=== PATIENT | male | born 1970 | race Caucasian/White ===

== ENCOUNTER 2024-03-19 19:03 | Inpatient (IN) | payer MEDICAID ==
[~2024-03-19] VITALS: Ht 165.1 cm; Wt 85.3 kg
[2024-03-19 19:20] VITALS: RESP 14
[2024-03-19] MEDS ORDERED: FENTANYL 2500MCG/250ML PMX 250 ML IV ONE (19:45)
[2024-03-19] MEDS: CEFTRIAXONE 1GM/50ML 50 ML IV ONE (20:18)
[2024-03-19] MEDS: PANTOPRAZOLE SODIUM 40 MG/VIAL IV STA (20:18)
[2024-03-19] MEDS: SODIUM CHLORIDE 0.9% 1,000 ML IV ONE (20:18)
[2024-03-19] MEDS: OCTREOTIDE ACETATE 50 MCG/ML 1ML IV STA (20:22)
[2024-03-19] MEDS: FENTANYL CITRATE/PF 2,500 MCG in SODIUM CHLORIDE 0.9% 200 ML IV PRN (20:23)
[2024-03-19 20:30] LABS: INR 1.4
[2024-03-19] MEDS ORDERED: ONDANSETRON HCL 4MG/2ML INJ IV PRN (20:30)
[2024-03-19] MEDS ORDERED: DOCUSATE SODIUM 100MG CAPSULE PO PRN (20:30)
[2024-03-19] MEDS ORDERED: GUAIFENESIN 200MG/10ML SUGAR FREE UDC PO PRN (20:30)
[2024-03-19] MEDS ORDERED: MAGNESIUM/ALUMINUM HYDROXIDE/SIMETHICONE 30ML UDC PO PRN (20:30)
[2024-03-19] MEDS ORDERED: IPRATROPIUM/ALBUTEROL 0.5-3(2.5)MG/3ML NEB HHN PRN (20:30)
[2024-03-19] MEDS ORDERED: ACETAMINOPHEN 325MG TABLET PO PRN (20:30)
[2024-03-19] MEDS ORDERED: CLONIDINE 0.1MG TABLET PO PRN (20:30)
[2024-03-19] MEDS: IPRATROPIUM/ALBUTEROL 0.5-3(2.5)MG/3ML NEB HHN SCH (20:30)
[2024-03-19] MEDS: PROPOFOL 10MG/ML 100ML 100 ML IV SCH (20:40)
[2024-03-19] MEDS ORDERED: MIDAZOLAM 100MG/100ML PMX 100 ML IV PRN (21:30)
[2024-03-19] MEDS: MIDAZOLAM 100MG/100ML PMX 100 ML IV PRN (21:38)
[2024-03-19] MEDS ORDERED: PANTOPRAZOLE 80 MG in SODIUM CHLORIDE 0.9% 100 ML IV SCH ×2 (21:45→22:00)
[2024-03-19] MEDS ORDERED: OCTREOTIDE 1,000 MCG in SODIUM CHLORIDE 0.9% 100 ML IV ONE (21:45)
[2024-03-19 21:50] VITALS: RESP 14
[2024-03-19] MEDS: MVI, ADULT NO.1 10 ML, FOLIC ACID 1 MG, THIAMINE HCL 100 MG in SODIUM CHLORIDE 0.9% 1,0... IV SCH (21:52)
[2024-03-19] MEDS: PANTOPRAZOLE 80 MG in SODIUM CHLORIDE 0.9% 100 ML IV SCH (21:55)
[2024-03-19] MEDS ORDERED: OCTREOTIDE 1,000 MCG in SODIUM CHLORIDE 0.9% 98 ML IV SCH (22:00)
[2024-03-19 22:17] LABS: BG BASE EXCESS -7.1 mmol/L (-2.0-3.0); BG CARBOXYHEMOGLOBIN 0.3 % (0.5-1.5); BG DEOXYHEMOGLOBIN 0.7 % (0.0-5.0); BG FRACTION INSPIRED OXYGEN 100; BG HCO3 ACT 18.8 mmol/L (21.0-28.0); BG METHEMOGLOBIN 0.3 % (0.5-1.5); BG OXYGEN SATURATION 99.3 % (94.0-98.0); BG OXYHEMOGLOBIN 98.7 % (94.0-98.0); BG PCO2 39.7 mmHg (35.0-48.0); BG PH 7.294 (7.350-7.450); BG PO2 266.9 mmHg (83.0-108.0); BG SAMPLE SITE RIGHT RADIAL; BG TOTAL HEMOGLOBIN 10.9 g/dL (13.5-17.5); BG VENT MODE VENT - AC
[2024-03-19 22:38] LABS: HEMATOCRIT. 31.4 % (42.0-52.0); HEMOGLOBIN. 10.5 g/dL (14.0-18.0); MEAN CORPUSCULAR HEMOGLOBIN 32.3 pg (28.0-32.0); MEAN CORPUSCULAR HGB CONC 33.4 g/dL (31.0-37.0); MEAN CORPUSCULAR VOLUME 96.8 fL (80.0-94.0); MEAN PLATELET VOLUME 9.2 fl (7.4-10.4); PLATELET 69 x1000/uL (130-400); RED BLOOD CELL COUNT 3.24 mill/uL (4.7-6.1); RED CELL DISTRIBUTION WIDTH 17.8 % (11.6-14.6); WHITE BLOOD COUNT 11.9 x1000/uL (4.5-11.0)
[2024-03-19 22:45] LABS: DIFFERENTIAL COMMENT 1
[2024-03-19 22:57] LABS: CHLORIDE 114 mEq/L (98-107); POTASSIUM 6.1 mEq/L (3.5-5.1); SODIUM 144 mEq/L (136-145)
[2024-03-19 22:58] LABS: CALCIUM 6.9 mg/dL (8.7-10.4); CARBON DIOXIDE 22 mEq/L (21-32)
[2024-03-19 23:00] LABS: FERRITIN 139 ng/mL (22-322); FOLIC ACID (FOLATE) SERUM 13.01 ng/mL (>5.38); VITAMIN B12 SERUM 1091 pg/mL (211-911)
[2024-03-19 23:02] LABS: IRON 106 ug/dL (65-175)
[2024-03-19 23:03] LABS: CREATININE 0.7 mg/dL (0.6-1.3); ETHANOL BLOOD 178 mg/dL (<10); GLUCOSE 123 mg/dL (70-105); UREA NITROGEN BLOOD 14 mg/dL (9-23)
[2024-03-19 23:04] LABS: AMMONIA 65 uMol/L (<32)
[2024-03-19 23:05] LABS: ALANINE AMINOTRANSFERASE 112 IU/L (10-49); ALBUMIN 2.3 g/dL (3.2-4.8); ASPARTATE AMINOTRANSFERASE 266 IU/L (<34); BILIRUBIN TOTAL 1.2 mg/dL (0.1-1.0); PROTEIN TOTAL 5.2 g/dL (6.0-8.3); TOTAL IRON BINDING CAPACITY 226 ug/dl (250-425)
[2024-03-19 23:06] LABS: ANISOCYTOSIS 1+; PLATELET ESTIMATE DECREASED
[2024-03-19] MEDS: NOREPINEPHRINE 8MG/250ML PMX 250 ML IV PRN (23:10)
[2024-03-19 23:22] LABS: TROPONIN I HIGH SENSITIVITY 91 ng/L (3.0-53)
[2024-03-19] MEDS ORDERED: INSULIN REGULAR (HUMULIN R) 1000UNITS/10ML VIAL IV NR (23:30)
[2024-03-19 23:42] VITALS: RESP 15
[2024-03-20] VITALS (64 sets, daily range): BP systolic 51–203; BP diastolic 11–168; PULSE 36–154; RESP 8–73; TEMP 36.114–37.0852; O2SAT 94–100
[2024-03-20] MEDS: OCTREOTIDE 1,000 MCG in SODIUM CHLORIDE 0.9% 98 ML IV SCH (00:53)
[2024-03-20] MEDS: CALCIUM GLUCONATE 1GM PREMIX 50 ML IV NR (01:06)
[2024-03-20] MEDS: INSULIN REGULAR (HUMULIN R) 1000UNITS/10ML VIAL IV NR (01:07)
[2024-03-20] MEDS: SODIUM BICARBONATE 8.4% 50MEQ/50ML SYR IV NR ×2 (01:07→01:33)
[2024-03-20] MEDS: DEXTROSE 50% WATER 50ML SYRINGE IV NR ×2 (01:07→01:33)
[2024-03-20 01:24] LABS: BILIRUBIN DIRECT 0.6 mg/dL (<=3.0)
[2024-03-20] MEDS: SODIUM ZIRCONIUM CYCLOSILICATE 10GM/PACKET PO NR (01:33)
[2024-03-20] MEDS: DEXT 5%/LACTATED RINGERS 1,000 ML IV NR (03:43)
[2024-03-20] MEDS ORDERED: VASOPRESSIN 20 UNIT in SODIUM CHLORIDE 0.9% 99 ML IV PRN (04:00)
[2024-03-20] MEDS ORDERED: PHENYLEPHRINE 50MG/250ML PMX 250 ML IV PRN (04:00)
[2024-03-20 04:18] LABS: BASOPHILS % 0.2 % (0.0-2.0); HEMATOCRIT. 26.5 % (42.0-52.0); HEMOGLOBIN. 8.6 g/dL (14.0-18.0); LYMPHOCYTES % 9.4 % (20.0-50.0); MEAN CORPUSCULAR HEMOGLOBIN 32.2 pg (28.0-32.0); MEAN CORPUSCULAR HGB CONC 32.4 g/dL (31.0-37.0); MEAN CORPUSCULAR VOLUME 99.5 fL (80.0-94.0); MEAN PLATELET VOLUME 9.7 fl (7.4-10.4); MONOCYTES % 4.7 % (2.0-8.0); NEUTROPHILS % 85.7 % (40.0-76.0); PLATELET 64 x1000/uL (130-400); RED BLOOD CELL COUNT 2.66 mill/uL (4.7-6.1); RED CELL DISTRIBUTION WIDTH 19.2 % (11.6-14.6); WHITE BLOOD COUNT 20.8 x1000/uL (4.5-11.0)
[2024-03-20 04:29] LABS: CHLORIDE 113 mEq/L (98-107); POTASSIUM 4.8 mEq/L (3.5-5.1); SODIUM 147 mEq/L (136-145)
[2024-03-20] MEDS: PHENYLEPHRINE 50 MG in DEXTROSE 5% WATER 250 ML IV PRN (04:29)
[2024-03-20 04:33] LABS: CALCIUM 6.8 mg/dL (8.7-10.4); CARBON DIOXIDE 20 mEq/L (21-32)
[2024-03-20 04:38] LABS: CREATININE 0.9 mg/dL (0.6-1.3); GLUCOSE 189 mg/dL (70-105); TRIGLYCERIDE 129 mg/dL (0-150)
[2024-03-20 04:39] LABS: LDL CHOLESTEROL 57 mg/dL (5-100); T4 FREE 0.77 ng/dL (0.89-1.76); THYROID STIMULATING HORMONE 0.51 uIU/mL (0.55-4.78); UREA NITROGEN BLOOD 13 mg/dL (9-23)
[2024-03-20 04:40] LABS: CHOLESTEROL 106 mg/dL (<200); CREATINE KINASE 282 IU/L (46-171); HDL CHOLESTEROL 27 mg/dL (>55); PHOSPHORUS 4.3 mg/dL (2.5-4.9)
[2024-03-20 05:47] LABS: LACTIC ACID 8.9 mmol/L (0.4-2.0); TROPONIN I HIGH SENSITIVITY 638 ng/L (3.0-53)
[2024-03-20] MEDS ORDERED: MAGNESIUM 4 G PREMIX 100 ML IV NR (07:45)
[2024-03-20] MEDS ORDERED: LIDOCAINE HCL 1% 10 MG/ML 10ML VIAL ONE (08:17)
[2024-03-20] MEDS ORDERED: DEXTROSE 50% WATER 50ML SYRINGE IV PRN (08:30)
[2024-03-20] MEDS ORDERED: DEXT 5%/0.45% NACL 1000ML 1,000 ML IV SCH (08:30)
[2024-03-20] MEDS: IPRATROPIUM/ALBUTEROL 0.5-3(2.5)MG/3ML NEB HHN SCH (08:42)
[2024-03-20] MEDS ORDERED: FOLIC ACID 1MG TABLET PO SCH (09:00)
[2024-03-20] MEDS ORDERED: THIAMINE HCL 100MG TABLET PO SCH (09:00)
[2024-03-20] MEDS ORDERED: PHENYLEPHRINE 100 MG in DEXT 5% WATER 240 ML IV PRN (09:15)
[2024-03-20] MEDS ORDERED: FENTANYL CITRATE/PF 2,500 MCG in SODIUM CHLORIDE 0.9% 200 ML IV PRN (10:00)
[2024-03-20] MEDS ORDERED: NOREPINEPHRINE 32 MG in DEXT 5% WATER 218 ML IV PRN (10:00)
[2024-03-20 10:04] LABS: BG BASE EXCESS -23.2 mmol/L (-2.0-3.0); BG CARBOXYHEMOGLOBIN 0.4 % (0.5-1.5); BG DEOXYHEMOGLOBIN 0.9 % (0.0-5.0); BG FRACTION INSPIRED OXYGEN 100; BG HCO3 ACT 7.2 mmol/L (21.0-28.0); BG OXYGEN SATURATION 99.1 % (94.0-98.0); BG OXYHEMOGLOBIN 98.7 % (94.0-98.0); BG PH 6.934 (7.350-7.450); BG PO2 216.7 mmHg (83.0-108.0); BG SAMPLE SITE LEFT RADIAL; BG TOTAL HEMOGLOBIN 6.5 g/dL (13.5-17.5); BG TOTAL RESPIRATORY RATE 26 b/min; BG VENT MODE VENT - AC
[2024-03-20] MEDS ORDERED: PROPOFOL 10MG/ML 100ML 100 ML IV PRN (11:00)
[2024-03-20] MEDS ORDERED: BLOOD SUGAR DIAGNOSTIC STRIP TEST SCH (11:30)
[2024-03-20] MEDS ORDERED: INSULIN LISPRO 100 UNITS/ML SUBCUT SCH (12:00)
[2024-03-20] MEDS ORDERED: PHYTONADIONE 10MG/ML INJ SUBCUT SCH (12:41)
[2024-03-20] MEDS ORDERED: OCTREOTIDE 1,000 MCG in SODIUM CHLORIDE 0.9% 98 ML IV SCH (14:00)
[2024-03-20] MEDS ORDERED: CEFTRIAXONE 1GM/50ML 50 ML IV SCH (20:00)
[2024-03-20] MEDS ORDERED: PANTOPRAZOLE SODIUM 40 MG/VIAL IV SCH (21:00)
== END 2024-03-20 16:40 | DRG 133 ==
LOC: ER 19:03 → MICUSO 20:26
PROVIDERS: ADMIT Internal Medicine; ATTEND Internal Medicine
PROC: 0BH17EZ Insertion of Endotracheal Airway into Trachea, Via Natural or Artificial Opening (ICD-10-PCS; 2024-03-19)
PROC: 5A1935Z Respiratory Ventilation, Less than 24 Consecutive Hours (ICD-10-PCS; 2024-03-19)
PROC: 5A12012 Performance of Cardiac Output, Single, Manual (ICD-10-PCS; principal; 2024-03-20)
PROC: 05HY33Z Insertion of Infusion Device into Upper Vein, Percutaneous Approach (ICD-10-PCS; 2024-03-20)
PROC: B54NZZA Ultrasonography of Left Upper Extremity Veins, Guidance (ICD-10-PCS; 2024-03-20)
PROC: 30233N1 Transfusion of Nonautologous Red Blood Cells into Peripheral Vein, Percutaneous Approach (ICD-10-PCS; 2024-03-20)
DX: J96.01 Acute respiratory failure with hypoxia (principal); I46.9 Cardiac arrest, cause unspecified; G92.8 Other toxic encephalopathy; K92.0 Hematemesis; E72.20 Disorder of urea cycle metabolism, unspecified; K76.82 Hepatic encephalopathy; I95.9 Hypotension, unspecified; D68.9 Coagulation defect, unspecified; D69.59 Other secondary thrombocytopenia; E87.8 Other disorders of electrolyte and fluid balance, not elsewhere classified; E83.51 Hypocalcemia; F10.229 Alcohol dependence with intoxication, unspecified; D53.9 Nutritional anemia, unspecified; K74.60 Unspecified cirrhosis of liver; R73.9 Hyperglycemia, unspecified; E87.5 Hyperkalemia; I10 Essential (primary) hypertension; R74.01 Elevation of levels of liver transaminase levels; E87.6 Hypokalemia; Y90.6 Blood alcohol level of 120-199 mg/100 ml; Z79.899 Other long term (current) drug therapy
CPT/HCPCS: 31500; 31720; 36415; 36573; 36600; 71045; 80048; 80053; 80061; 80307; 80320; 82140; 82248; 82375; 82550; 82553; 82607; 82728; 82746; 82805; 82962; 83036; 83540; 83550; 83605; 83735; 83880; 84100; 84145; 84439; 84443; 84484; 85025; 85044; 86850; 86900; 86920; 93970; 94002; 94003; 99291; C1725; J0610; J0696; J1815; J2250; J2354; J2405; J2470; J2704; J3010; J3411; J3475; J3490; J7030; J7050; J7060; P9016; G0480